=== PATIENT | female | born 1955 | race African-American/Black ===

== ENCOUNTER 2021-11-18 10:39 | Outpatient (CLI) | payer BC | END 2021-11-18 10:40 | disposition home or self-care (01) | LOC: CSHMAMMO 10:39 | PROVIDERS: ATTEND Nurse Practitioner Family | DX: Z12.31 Encounter for screening mammogram for malignant neoplasm of breast (principal); Z13.820 Encounter for screening for osteoporosis; Z78.0 Asymptomatic menopausal state; M85.851 Other specified disorders of bone density and structure, right thigh; M85.852 Other specified disorders of bone density and structure, left thigh | CPT/HCPCS: 77063; 77067; 77080 ==